=== PATIENT | female | born 1960 | race Caucasian/White ===

== ENCOUNTER 2023-01-13 16:08 | Emergency (ER) | payer BC ==
[2023-01-13] MEDS ORDERED: Oxymetazoline HCl 0.05% (30 ML BOT) ONE (16:16)
== END 2023-01-13 17:11 | disposition home or self-care (01) ==
LOC: BURERS 16:08
DX: R04.0 Epistaxis (principal); I10 Essential (primary) hypertension
CPT/HCPCS: 99283

== ENCOUNTER 2024-10-02 09:49 | Emergency (ER) | payer MEDICARE, OTHER ==
[2024-10-02] MEDS ORDERED: Ibuprofen 200 MG TAB ONE (10:10)
== END 2024-10-02 11:11 | disposition home or self-care (01) ==
LOC: BURERS 09:49
DX: S82.62XA Displaced fracture of lateral malleolus of left fibula, initial encounter for closed fracture (principal); I10 Essential (primary) hypertension; X58.XXXA Exposure to other specified factors, initial encounter
CPT/HCPCS: 99283

== ENCOUNTER 2024-10-06 08:57 | Outpatient (CLI) | payer MEDICARE, OTHER ==
[2024-10-06] MEDS ORDERED: Iopamidol 370 76% 100 ML VIAL ONE (14:58)
== END 2024-10-06 08:58 | disposition home or self-care (01) ==
LOC: BURCT 08:57
PROVIDERS: ATTEND Family Medicine
DX: R10.12 Left upper quadrant pain (principal); R07.81 Pleurodynia; Z98.84 Bariatric surgery status; K22.89 Other specified disease of esophagus
CPT/HCPCS: 74177; Q9967

== ENCOUNTER 2025-08-02 07:23 | Emergency (ER) | payer MEDICARE, OTHER ==
[2025-08-02] MEDS ORDERED: Ondansetron PF 4 MG/2 ML Vial ONE (07:42)
[2025-08-02 08:04] LABS: Hematocrit 35.6 % (36.0-47.0); Hemoglobin 12.6 g/dL (12.0-16.0); MDiff Complete? YES; Mean Corpuscular Hemoglobin 29.1 pg (27.0-31.0); Mean Corpuscular Volume 82.0 fl (78.0-98.0); Platelet Count 345 10x3/uL (130-400); Red Blood Cell (RBC) Count 4.34 mill/uL (4.20-5.40); White Blood Cell (WBC) Count 7.3 10x3/uL (4.8-10.8)
[2025-08-02 08:15] LABS: Troponin I Less than 0.010 ng/mL (< 0.028)
[2025-08-02 08:17] LABS: ALT (SGPT) 21 U/L (Less than 34); AST (SGOT) 54 U/L (11-34); Albumin 4.1 g/dL (3.1-4.5); Alkaline Phosphatase 63 U/L (40-110); Anion Gap 20 mmol/L (10-20); BUN (Urea Nitrogen) 18 mg/dL (9.8-20.1); Bilirubin, Total 0.9 mg/dL (0.3-1.2); Calc. Creatinine Clearance 0 mL/min (70-130); Calcium 9.4 mg/dL (7.8-10.44); Carbon Dioxide 21 mmol/L (23-31); Chloride 104 mmol/L (98-107); Globulin 3.2 g/dL (2.4-3.5); Glucose 134 mg/dL (80-115); Lipase 25 U/L (8-78); Potassium 3.9 mmol/L (3.5-5.1); Sodium 141 mmol/L (136-145)
[2025-08-02 09:04] LABS: Glucose, Urine (Dipstick) Negative (Negative); Leukocyte Small (Negative); Protein, Urine (Dipstick) 30 mg/dL (Neg-Trace); Specific Gravity, Urine 1.025 (1.005-1.030)
[2025-08-02 09:13] LABS: Bacteria/HPF Rare-Few HPF (None Seen); CAUTI Indications for Culture Pelvic or flank pain; Mucous/LPF 2+ LPF (<2+)
[2025-08-02 09:15] LABS: Urine Culture Reflex Yes Yes
[2025-08-02] MEDS ORDERED: Iopamidol 370 76% 100 ML VIAL ONE (10:04)
[2025-08-02] MEDS ORDERED: Pantoprazole 40 MG VIAL ONE (10:54)
== END 2025-08-02 11:40 | disposition short-term general hospital (02) ==
LOC: BURERS 07:23
DX: K63.1 Perforation of intestine (nontraumatic) (principal); I10 Essential (primary) hypertension; E78.00 Pure hypercholesterolemia, unspecified; E03.9 Hypothyroidism, unspecified; K21.9 Gastro-esophageal reflux disease without esophagitis; Z79.899 Other long term (current) drug therapy; Z79.82 Long term (current) use of aspirin
CPT/HCPCS: 36415; 74177; 80053; 81001; 83605; 83690; 84484; 85025; 87086; 93005; 96361; 96365; 96375; 96376; J2270; J2405; J2470; J2543; J3010; Q9967

== ENCOUNTER 2025-08-14 16:44 | Outpatient (CLI) | payer MEDICARE, OTHER ==
[2025-08-14 17:24] LABS: Anion Gap 16 mmol/L (10-20); BUN (Urea Nitrogen) 14 mg/dL (9.8-20.1); Calc. Creatinine Clearance 0 mL/min (70-130); Calcium 9.4 mg/dL (7.8-10.44); Carbon Dioxide 24 mmol/L (23-31); Chloride 104 mmol/L (98-107); Glucose 94 mg/dL (80-115); Magnesium 2.0 mg/dL (1.6-2.6); Potassium 3.7 mmol/L (3.5-5.1); Sodium 140 mmol/L (136-145)
[2025-08-14 18:39] LABS: Hematocrit 32.0 % (36.0-47.0); Hemoglobin 11.6 g/dL (12.0-16.0); MDiff Complete? YES; Mean Corpuscular Hemoglobin 29.4 pg (27.0-31.0); Mean Corpuscular Volume 80.9 fl (78.0-98.0); Platelet Count 633 10x3/uL (130-400); Red Blood Cell (RBC) Count 3.95 mill/uL (4.20-5.40); White Blood Cell (WBC) Count 11.9 10x3/uL (4.8-10.8)
== END 2025-08-14 16:45 | disposition home or self-care (01) ==
LOC: BURRAD 16:44
PROVIDERS: ATTEND Family Medicine
DX: D62 Acute posthemorrhagic anemia (principal); E87.6 Hypokalemia; K50.018 Crohn's disease of small intestine with other complication; T18.3XXA Foreign body in small intestine, initial encounter
CPT/HCPCS: 36415; 74019; 80048; 83735; 85025

== ENCOUNTER 2025-08-24 08:20 | Outpatient (CLI) | payer MEDICARE, OTHER | END 2025-08-24 08:21 | disposition home or self-care (01) | LOC: BURCT 08:20 | PROVIDERS: ATTEND Family Medicine | DX: K50.018 Crohn's disease of small intestine with other complication (principal); T18.3XXA Foreign body in small intestine, initial encounter; D64.9 Anemia, unspecified; Z87.19 Personal history of other diseases of the digestive system; K52.9 Noninfective gastroenteritis and colitis, unspecified | CPT/HCPCS: 74177 ==